=== PATIENT | female | born 1960 | race Caucasian/White ===

== ENCOUNTER → 2017-11-07 | Outpatient (CLI) | payer OTHER ==
[~2017-11-07] MED LIST: DYAZIDE; FLONASE; LEVOTHROID
== END ==
LOC: RAD 01:09
DX: Z12.31 Encounter for screening mammogram for malignant neoplasm of breast (principal)

== ENCOUNTER → 2018-02-19 | Outpatient (CLI) | payer OTHER | LOC: CAT 07:48 | DX: Z13.6 Encounter for screening for cardiovascular disorders (principal) ==

== ENCOUNTER → 2019-01-28 | Outpatient (CLI) | payer OTHER | LOC: RAD 15:16 | DX: Z12.31 Encounter for screening mammogram for malignant neoplasm of breast (principal) ==

== ENCOUNTER → 2019-03-24 | Outpatient (CLI) | payer OTHER ==
[~2019-03-24] VITALS: Ht 162.6 cm; Wt 88.9 kg
[~2019-03-24] MED LIST changes: +AGILEASE PO; +ASTEPRO205.5 MCG/ NASAL; +FISH OIL 1,001000 M2 PO; +MAXZIDE-25 MG1 EACH PO; +NASACORT10.8 ML NASAL; +SYNTHROID50 MCG PO; +VITAMIN D-32000 UNIT PO; +XYZAL5 MG PO
--- NOTE | 2019-03-25 14:43 | PATH ---
[facility] [place] [address] PATHOLOGY RPT PROCEDURE Name: ODALIS MCCORD Room #: REG [facility] M.R.#: [id number] ������������������ Admission: 03/24/19 ������������������ Date of : 62 Discharge: Report #: [id number] Path Case #: [id number] LCA Accession Number: [id number] . 01 Material submitted: . PART A: colon - BX OF ASCENDING COLON POLYP. Modifiers: ascending PART B: colon - RANDOM COLON BX TO R/O MICROSCOPIC COLITIS . 01 Clinical history: . Pre-OP DX: Hx of diarrhea, Hx of polyps Post-OP DX: Colon polyp, diverticulosis . 02 Diagnosis: A. Polyp, ascending colon polyp, endoscopic biopsy: - Tubular adenoma without high-grade dysplasia. - One fragment showing lymphoid tissue without dysplasia. . B. Large intestinal mucosa, random colon, rule out microscopic colitis, endoscopic biopsy: - Mild nonspecific reactive hyperplastic changes. - Negative for acute cryptitis. - Negative for microscopic colitis. - Negative for dysplasia or malignancy. (IUV:pit; 03/25/2019) QTP/03/25/2019 . 02 Electronically signed: . Almita White MD, Pathologist NPI- [id number] . 01 Gross description: . A. Received in formalin labeled "Odalis Mccord, BX of ascending colon polyp," are 2 segments of guerra soft tissue measuring 0.7 x 0.3 x 0.2cm in aggregate dimensions and ranging from 0.3 to 0.4 cm in maximum dimension. The specimen is submitted entirely in cassette A1. . B. Received in formalin labeled "Odalis Mccord, random colon BX, rule out microscopic colitis," are 4 segments of guerra soft tissue measuring 1.2 x 0.7 x 0.3 cm in aggregate dimensions and ranging from 0.3 to 0.5 cm in maximum dimension. The specimen is submitted entirely in cassette B1. (TSD; 03/24/2019) TOB/TOB . 02 Pathologist provided ICD-10: D12.2, Z87.19, Z86.010 . 02 [place] [address] PATHOLOGY RPT PROCEDURE Name: ODALIS MCCORD S Room #: REG CLI Tisha#: [id number] ������������������ Admission: 03/24/19 ������������������ Date of : 62 Discharge: Report #: [id number] Path Case #: [id number], [id number] Specimen Comment: A courtesy copy of this report has been sent to Specimen Comment: [phone], . Specimen Comment: Report sent to / DR TONEY Performed at: [address] [facility], [place] [id number] MD Zhao Rodriguez MD Phone: [phone] Performed at: [address] [id number] MD Almita White MD Phone: [phone]
--- NOTE | 2019-03-26 16:50 | P ---
[facility] [place] [address] [place] [address] PROCEDURE REPORT Name: ZENON AGUDELO Room #: REG [facility]#: [id number] Admission: 03/24/19 ������������������ Attend Phys: Atif Jimenez Discharge: ������������������ Date of : 62 Report #: [id number] THIS REPORT FOR: //name// CC: Atif Salgueroalistair Solorioon DATE OF SERVICE: 03/24/2019 PROCEDURE PERFORMED: Colonoscopy with biopsies. HISTORY OF PRESENT ILLNESS: The patient is a 58-year-old female with a history of colon polyps 5 years ago, possible family history of colon cancer in a grandparent. She does report intermittent diarrhea symptoms at times. DESCRIPTION OF PROCEDURE: The risks and benefits of the procedure were explained to the patient; those risks including, but not limited to bleeding, perforation and the risk of sedation. She understood these risks and gave informed consent. Sedation was given using propofol per Anesthesia. Next, a digital rectal exam was initially performed, which was normal. Next, using a standard Olympus colonoscope, the scope was placed in the patient's anus and advanced under direct vision to the cecum. The overall prep was good. The cecum and the ileocecal valve were normal in appearance. In the ascending colon, a 4-mm sessile polyp was noted. This was removed with cold forceps; otherwise normal. The transverse and descending colon were normal. Multiple diverticula were noted in the sigmoid colon. No evidence of inflammation; otherwise normal. The rectal mucosa was normal. On retroflexion, no abnormalities were noted. The scope was then withdrawn and the procedure terminated. The patient tolerated the procedure well. Random biopsies were obtained today. They were to rule out the possibility of microscopic colitis. IMPRESSION: 1. Small colonic polyp. 2. Sigmoid diverticulosis. 3. Otherwise, normal colonoscopy. RECOMMENDATIONS: 1. Await biopsy results. 2. Would recommend repeat colonoscopy in 5 years. [facility] [address] [place] [address] PROCEDURE REPORT Name: ZENON AGUDELO Room #: [facility]#: [id number] Admission: 03/24/19 ������������������ Attend Phys: Atif Jimenez Discharge: ������������������ Date of : 62 Report #: [id number] Thank you for allowing me to participate in her care. ��������������������������������������������� <ELECTRONICALLY SIGNED> ���������������������������������������� By: Atif Dominguez MD ��������������������������������������������� 03/26/19 1650 1051 0025 Atif Dominguez MD /nt
== END | disposition home or self-care (01) ==
LOC: GI 08:27
DX: D12.2 Benign neoplasm of ascending colon (principal); K57.30 Diverticulosis of large intestine without perforation or abscess without bleeding; E03.9 Hypothyroidism, unspecified; Z88.8 Allergy status to other drugs, medicaments and biological substances; Z98.890 Other specified postprocedural states; Z79.899 Other long term (current) drug therapy; Z86.010 Personal history of colon polyps
CPT/HCPCS: 62110; 62900

== ENCOUNTER → 2019-09-20 | Outpatient (CLI) | payer OTHER | LOC: MRI 07:08 | DX: S83.241A Other tear of medial meniscus, current injury, right knee, initial encounter (principal); W19.XXXA Unspecified fall, initial encounter; Y93.89 Activity, other specified; Y92.89 Other specified places as the place of occurrence of the external cause; Y99.8 Other external cause status ==

== ENCOUNTER → 2020-02-17 | Outpatient (CLI) | payer OTHER | LOC: RAD 11:09 | PROVIDERS: ATTEND Family Medicine | DX: Z12.31 Encounter for screening mammogram for malignant neoplasm of breast (principal); N64.89 Other specified disorders of breast ==

== ENCOUNTER 2020-06-17 06:33 | Emergency (ER) | payer OTHER ==
[~2020-06-17] VITALS: Ht 162.6 cm; Wt 83.9 kg
[2020-06-17] MEDS ORDERED: ZOFRAN ODT4 MG PO (07:37)
[2020-06-17] MEDS ORDERED: NORCO 5-325 TA1 EAC2 PO (07:37)
[2020-06-17] MEDS ORDERED: PROTONIX40 M2 PO (07:37)
[2020-06-17] MEDS ORDERED: CARAFATE 1 GM TA1 G1 PO (07:37)
[2020-06-17 07:44] VITALS: BP 151/72
== END 2020-06-17 07:50 | disposition home or self-care (01) ==
LOC: ER 06:33
DX: K21.9 Gastro-esophageal reflux disease without esophagitis (principal); R10.13 Epigastric pain; R10.33 Periumbilical pain; R11.2 Nausea with vomiting, unspecified; E03.9 Hypothyroidism, unspecified; Z90.89 Acquired absence of other organs; Z98.890 Other specified postprocedural states; Z90.711 Acquired absence of uterus with remaining cervical stump; Z79.899 Other long term (current) drug therapy; Z88.5 Allergy status to narcotic agent

== ENCOUNTER → 2020-06-26 | Outpatient (CLI) | payer OTHER ==
[~2020-06-26] MED LIST changes: +CARAFATE 1 GM TA1 G1 PO; +NORCO 5-325 TA1 EAC2 PO; +PROTONIX40 M2 PO; +ZOFRAN ODT4 MG PO
== END ==
LOC: LAB 14:58
PROVIDERS: ATTEND Nurse Practitioner
DX: K81.0 Acute cholecystitis (principal); K57.30 Diverticulosis of large intestine without perforation or abscess without bleeding; K82.8 Other specified diseases of gallbladder

== ENCOUNTER 2020-06-28 12:49 | Observation (INO) | payer OTHER ==
[~2020-06-28] VITALS: Ht 162.6 cm; Wt 83.9 kg
[~2020-06-28 12:49] MED LIST changes: -COLACE 100 MG100 MG PO; -HYDROCODON-ACE1 EAC7 PO; -MIRALAX17 GM PO
[2020-06-28 13:49] VITALS: BP 144/74
[2020-06-28] MEDS ORDERED: COLACE 100 MG100 MG PO (16:05)
[2020-06-28] MEDS ORDERED: HYDROCODON-ACE1 EAC7 PO (16:05)
[2020-06-28] MEDS ORDERED: MIRALAX17 GM PO (16:05)
[2020-06-28 16:37] VITALS: BP 144/74
[2020-06-28 20:39] VITALS: BP 129/72
--- NOTE | 2020-06-29 02:06 | NUR ---
PT 'S ADMISSION HX,EDUCATIONA AND ASSESSMENT COMPLETED.PT STATED THAT SHE HAD AN EPISODE OF NAUSEA ENROUTE TO THE FLOOR FROM PACU,NONE NOTED SO FAR SINCE PT WAS ADMITTED.PT C/O PAIN ON HER ABD,MANAGED WITH MED.PT DID ONE LAP AT [facility] SHE RETIRED FOR THE NIGHT.IVF INFUSING OREDERED.PT WITH FOUR LAP SITES COVERED WITH DERMABOND,CLEAN AND INTACT.PT SLEEPING ON HER BED AT THOIS TIME.FALL PRECAUTIONS IN PLACE,CALL LIGHT WITHIN REACH.
[2020-06-29 07:30] VITALS: BP 125/63
--- NOTE | 2020-06-29 09:02 | NUR ---
PT CARE ASSUMED AT 0700. A&Ox4. LAPSITES x4 DRY AND INTACT. PAIN MANAGED WELL WITH PAIN MEDICATION ON BOARD. TOLERATING DIET WELL. CLEARED BY DR. TONEY AND DR. WILLIS TO DISCHARGE. IV PATENT WITH NO REDNESS OR EDEMA, SALINE LOCKED. IV REMOVED. DISCHARGE INSTRUCTIONS GIVEN. NO FURTHER QUESTIONS.
--- NOTE | 2020-06-30 17:06 | PATH ---
[facility] [address] [place] [address] PATHOLOGY RPT PROCEDURE Name: ODALIS MCCORD Room #: 448-P [facility] Alexa Giles#: [id number] Admission: 06/28/20 Date of : 62 Discharge: 06/29/20 Report #: [id number] Path Case #: [id number] LCA Accession Number: [id number] . 01 Material submitted: . gallbladder - GALLBLADDER . 01 Clinical history: . CHOLELITHIASIS . 02 Diagnosis: Gallbladder, cholecystectomy: - Moderate chronic cholecystitis associated with ulceration as well as hemorrhage. - Cholelithiasis. - Incidental reactive lymph node. (IUV/db; 06/30/2020) LBQ 06/30/2020 1406 Local . 02 Electronically signed: . Almita White MD, Pathologist NPI- [id number] . 01 Gross description: . Received in formalin labeled "Odalis Mccord, gallbladder" is a previously opened cholecystectomy specimen measuring 8.3 x 4.0 x 2.1 cm. The serosa is pink-green and smooth with a full thickness defect in the hepatic bed measuring 2.0 x 1.1 cm. The specimen is opened to reveal guerra-green velvety mucosa without polyps or masses. The average wall thickness is 0.5 cm. Multiple yellow guerra bosselated calculi are present within the gallbladder and within the container, measuring in aggregate 5.5 x 2.9 x 0.4 cm and ranging from 0.3-0.6 cm in greatest dimension. Buffing Line Set Up Worker sections of the fundus and body and the cystic duct margin are submitted in A1-A2. ([facility]; 06/29/2020) [facility] 06/29/2020 1612 Local . 02 Pathologist provided ICD-10: K80.10, K82.8 . 02 CPT . 729379 Specimen Comment: A courtesy copy of this report has been sent to [phone] Specimen Comment: [phone] Specimen Comment: Report sent to / DR TONEY Performed at: 01 [place] [address] PATHOLOGY RPT PROCEDURE Name: ODALIS MCCORD Room #: 448-P [facility] Alexa Giles#: [id number] Admission: 06/28/20 Date of : 62 Discharge: 06/29/20 Report #: [id number] Path Case #: [id number] [address] [facility] [address], [place], [place] [id number] MD Arsh Schaeffer MD Phone: [phone] Performed at: [address] [id number] MD Almita White MD Phone: [phone]
== END 2020-06-29 09:38 | disposition home or self-care (01) ==
LOC: OR 12:49 → 4S 18:54 → OR 18:55 → 4S 18:56
PROVIDERS: ADMIT Surgery; ATTEND Surgery
DX: K80.10 Calculus of gallbladder with chronic cholecystitis without obstruction (principal); Z79.899 Other long term (current) drug therapy
CPT/HCPCS: 50010; 50101; 50411; 50555; 50558; 51297; 51489; 52265; 52266; 52287; 53307; 53310; 53312; 54022; 54118; 55245; 56462; 56525; 56526; 62110; 62900; 70005

== ENCOUNTER → 2020-06-28 | Outpatient (CLI) | payer OTHER ==
[~2020-06-28] MED LIST changes: +COLACE 100 MG100 MG PO; +HYDROCODON-ACE1 EAC7 PO; +MIRALAX17 GM PO
== END ==
LOC: LAB 07:23
PROVIDERS: ATTEND Surgery
DX: Z01.812 Encounter for preprocedural laboratory examination (principal); Z20.828 Contact with and (suspected) exposure to other viral communicable diseases

== ENCOUNTER 2020-07-03 14:31 | Inpatient (IN) | payer OTHER ==
[~2020-07-03] VITALS: Ht 162.6 cm; Wt 83.6 kg
[~2020-07-03 14:31] MED LIST changes: +COLACE 100 MG100 MG PO; +HYDROCODON-ACE1 EAC7 PO; +MIRALAX17 GM PO
[2020-07-03 14:36] VITALS: BP 136/56
[2020-07-03 16:14] LABS: ABSOLUTE NEUTROPHILS 5.2 thou/uL (1.4-8.2); BASOPHILS 0.6 % (0.0-2.0); EOSINOPHILS 3.7 % (0.0-3.0); HEMOGLOBIN 14.6 gm/dL (12.0-15.0); LYMPHOCYTES 15.1 % (24.0-44.0); MCH 32.5 pg (26.0-34.0); MCHC 34.7 g/dL (28.0-37.0); MCV 93.6 fL (80.0-100.0); MONOCYTES 5.5 % (1.0-8.0); PLATELET COUNT 295 thou/uL (150-400); POLYS 75.1 % (36.0-66.0); RBC 4.48 mil/uL (4.20-5.00); RDW 12.3 % (10.5-14.5); WBC 6.9 thou/uL (4.0-11.0)
--- NOTE | 2020-07-03 16:43 | EKG ---
[facility] [place] [address] [place] [address] ELECTROCARDIOGRAM REPORT Name: ZENON AGUDELO Room #: REG [facility].R.#: [id number] Admission: 07/03/20 Attend Phys: Discharge: Date of : 62 Report #: [id number] THIS REPORT FOR: cc: Lennox Grier MD, Neal A. 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
[2020-07-03 16:55] LABS: CALCIUM 9.6 mg/dL (8.5-10.1); CREATININE 0.9 mg/dL (0.6-1.0); POTASSIUM 4.1 mmol/L (3.5-5.1)
[2020-07-03 17:07] LABS: ALBUMIN 3.8 g/dL (3.4-5.0); TOTAL BILIRUBIN 1.4 mg/dL (0.2-1.0); TOTAL PROTEIN 7.4 g/dL (6.4-8.2)
[2020-07-03 20:56] VITALS: BP 153/63
[2020-07-03 21:06] VITALS: BP 136/55
[2020-07-03 21:30] VITALS: BP 142/64
--- NOTE | 2020-07-04 00:47 | NUR ---
PT ADMITTED TO 449 VIA CART FROM ER AT 2130. PT ALERT AND ORIENTED X 4. UP TO BR AD CARLOS WITHOUT DIFFICULTY. LAC IV INTACT AND PATENT. NS INFUSING AT 100 ML/HR. PT HAS RASH ON HER BACK AND HER FACE IS FLUSHED. C/O ITCHING. PT NPO. PT C/O ABDOMINAL PAIN. FENTANYL GIVEN ORDERED. BENADRYL ALSO GIVEN FOR ITCHING. PT HAS 5 LAP TELLO SITES WITH SURGICAL GLUE. SITES WITHOUT REDNESS OR DRAINAGE. PT ORIENTED TO ROOM AND USE OF CALL LIGHT. PT APPEARS TO BE SLEEPING ON HOURLY ROUNDS.
[2020-07-04 05:20] VITALS: BP 138/61
[2020-07-04 07:35] LABS: HEMATOCRIT 39.7 % (37.0-47.0); HEMOGLOBIN 13.3 gm/dL (12.0-15.0); MCH 31.8 pg (26.0-34.0); MCHC 33.5 g/dL (28.0-37.0); MCV 94.8 fL (80.0-100.0); RBC 4.18 mil/uL (4.20-5.00); RDW 12.5 % (10.5-14.5)
[2020-07-04 07:53] LABS: ALBUMIN 3.3 g/dL (3.4-5.0); CALCIUM 8.2 mg/dL (8.5-10.1); CREATININE 0.8 mg/dL (0.6-1.0); POTASSIUM 3.7 mmol/L (3.5-5.1); TOTAL BILIRUBIN 0.7 mg/dL (0.2-1.0); TOTAL PROTEIN 5.8 g/dL (6.4-8.2)
--- NOTE | 2020-07-04 13:41 | NUR ---
PT ADMITTED RELATED TO INTRA ABDOMINAL ABSCESS, GASTRIC PAIN. CM REVIEWED CHART AND SPOKE WITH CARE TEAM. CM CALLED AND SPOKE WITH PT AT BEDSIDE THIS PT APPEARED TO BE A&O X4. CM ROLE INTRODUCED. PT INDICATED SHE LIVES IN A HOUSE WITH HER SPOUSE WITH 3 STEPS TO ENTER AND 12 STEPS INSIDE. 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 PT INDICATED NO DME. PT INDICATED SHE PLANS TO RETURN HOME ONCE MEDICALLY STABLE. PT'S PCPC IS DR. KELLIE TONEY. CM TO FOLLOW INDICATED WITH DC PLANNING. PT HAD PIPPIDA SCAN THIS AM SURGERY CONSULTED.
[2020-07-04 18:43] VITALS: BP 134/65
[2020-07-04 19:42] VITALS: BP 143/75
--- NOTE | 2020-07-04 19:45 | NUR ---
Assumed pt care this am, VS stable, pain is managed with IV pain meds partial relief is noted. Received NPO, went for a pippida scan. Is up ad jaz and steady on her gait. Call appropriately, at the bedside. POC followed, pt is very anxious wanting to know what will happen next. Dient and medications are tolerated well. Endorsed to the night nurse.
--- NOTE | 2020-07-05 03:40 | NUR ---
assumed care approx 193 evening 07/04. pt alert and oriented x4, appropriate and cooperative. pt given pain meds as ordered. pt up to bathroom to void and have bm tonight. IVF infusing as ordered. pt appears to be sleeping soundly with rounding checks. call light in reach. will continue to monitor.
[2020-07-05 07:48] LABS: HEMATOCRIT 38.4 % (37.0-47.0); HEMOGLOBIN 12.8 gm/dL (12.0-15.0); MCH 31.8 pg (26.0-34.0); MCHC 33.3 g/dL (28.0-37.0); MCV 95.7 fL (80.0-100.0); RBC 4.02 mil/uL (4.20-5.00); RDW 12.5 % (10.5-14.5); WBC 7.7 thou/uL (4.0-11.0)
[2020-07-05 08:08] LABS: ALBUMIN 3.4 g/dL (3.4-5.0); CALCIUM 8.6 mg/dL (8.5-10.1); CREATININE 0.7 mg/dL (0.6-1.0); POTASSIUM 3.6 mmol/L (3.5-5.1); TOTAL BILIRUBIN 0.8 mg/dL (0.2-1.0); TOTAL PROTEIN 6.1 g/dL (6.4-8.2)
[2020-07-05 09:48] VITALS: BP 144/78
--- NOTE | 2020-07-05 13:51 | NUR ---
CARE TEAM INDICATED THAT PT IS TO HAVE AN MRCP THIS DAY AND MAY NEED AN ERCP. CM TO FOLLOW INDICATED WITH DC PLANNING.
[2020-07-05 14:29] VITALS: BP 136/65
[2020-07-05 19:15] VITALS: BP 145/81
--- NOTE | 2020-07-06 03:16 | NUR ---
patient aox4 makes needs known.pain controlled this shift. patient ambulates in the room and the hallway with steady gaits.patient has been npo since midnight. patient is up at jaz. patient in bed asleep at this time breathing regular and unlaboured.
[2020-07-06 05:37] LABS: HEMATOCRIT 34.8 % (37.0-47.0); HEMOGLOBIN 11.6 gm/dL (12.0-15.0); MCH 31.9 pg (26.0-34.0); MCHC 33.2 g/dL (28.0-37.0); RBC 3.63 mil/uL (4.20-5.00); RDW 12.6 % (10.5-14.5)
[2020-07-06 06:01] LABS: ALBUMIN 3.1 g/dL (3.4-5.0); DIRECT BILIRUBIN 0.2 mg/dL (<0.1-0.2); TOTAL BILIRUBIN 0.5 mg/dL (0.2-1.0); TOTAL PROTEIN 5.9 g/dL (6.4-8.2)
[2020-07-06 07:11] VITALS: BP 109/40
--- NOTE | 2020-07-06 13:56 | NUR ---
Pt had ERCP this day. Care team indicated pt's diet is to be advanced and that LFT's are to be repeated in the am. It is anticipated that pt will likely be medically stable to dc home once medically stable. Cm to follow as indicated with dc planning.
[2020-07-06 14:44] VITALS: BP 113/83
--- NOTE | 2020-07-06 19:48 | NUR ---
Assumed pt care this am, this am received NPO. Pain was managed with medications. Went down for ERCP, VS stable. Pt complained of wheezing, phlegm that was pink and blood tinged. Informed MD, meds ordered. No pain was noted post op, POC followed, took a full bath pre op. no signs of distress noted. Endorsed to the night nurse.
[2020-07-06 20:00] VITALS: BP 158/92
[2020-07-07 06:56] VITALS: BP 123/59
[2020-07-07 08:03] LABS: ALBUMIN 3.1 g/dL (3.4-5.0); CREATININE 0.8 mg/dL (0.6-1.0); POTASSIUM 3.5 mmol/L (3.5-5.1); TOTAL BILIRUBIN 0.4 mg/dL (0.2-1.0); TOTAL PROTEIN 6.2 g/dL (6.4-8.2)
[2020-07-07 08:14] LABS: CALCIUM 8.6 mg/dL (8.5-10.1)
[2020-07-07 10:47] VITALS: BP 123/59
--- NOTE | 2020-07-07 11:04 | NUR ---
CARE TEAM INDICATED THAT PT IS MEDICALLY STABLE TO DC HOME THIS DAY. IT APPEARES THAT PT IS TO DC HOME TO SELF CARE. PT'S SPOUSE IS TO PROVIDE TRANSPORT HOME THIS DAY. NO OTHER CM INTERVENTION INDICATED. CASE CLOSED.
--- NOTE | 2020-07-07 11:46 | NUR ---
PT A&OX4, VSS, PAIN IN ABDOMEN WHEN MOVING. PAIN MEDICATION GIVEN. ABDOMEN ROUND AND SOFT. 5 LAP SITES WITH DERMABOND C/D/I. PATIENT STEADY ON FEET AD CARLOS TO BATHROOM. PATIENT TOLERATED BREAKFAST. AT BEDSIDE. PATIENT DISCHARGE HOME WITH NO NEEDS. PATIENT COMMUNICATED UNDERSTANDING OF PAPERWORK. NO SIGNS OF DISTRESS. ALL BELONGINGS WITH PATIENT AND IV REMOVED BEFORE DISCHARGE.
--- NOTE | 2020-07-07 13:16 | P ---
[facility] [place] [place] [address] PROCEDURE REPORT Name: ZENON AGUDELO Room #: 449-I [facility] IN ..#: [id number] Admission: 07/03/20 Attend Phys: Darin Arce MD Discharge: 07/07/20 Date of : 62 Report #: [id number] THIS REPORT FOR: cc: Lennox Grier MD, Neal A. MD McElhinney, Christian C. MD ~ CC: Lennox Arce MD DATE OF SERVICE: 07/06/2020 PROCEDURE PERFORMED: Upper endoscopy with biopsies and ERCP with sphincterotomy and stone removal. HISTORY OF PRESENT ILLNESS: The patient is a 59-year-old female with abdominal pain, history of cholecystitis, who underwent a laparoscopic cholecystectomy on 06/28/[address] Lennox Grier. He found severe gangrenous cholecystitis at that time. Multiple cholelithiasis was noted. Postoperatively, the patient continued to have pain and elevation in her liver function test, specifically AST, ALT and alkaline phosphatase. Her bilirubin has remained normal. Most recent labs show total bilirubin 0.5, AST 103, ALT 547, alkaline phosphatase 459, lipase is 69 yesterday. White count is 7.0. The patient remains afebrile. She underwent a PET scan on 07/04, which showed no biliary activity despite [address] scan of the abdomen and pelvis was then performed, showing recent cholecystectomy changes, slightly thickened, fluid collection near the gallbladder fossa without discrete measurable drainable fluid. An MRI with MRCP was then performed yesterday, which showed an eccentric filling defect along the distal common hepatic duct, just above the cystic duct, concerning for nonocclusive choledocholithiasis. Plan is for ERCP. DESCRIPTION OF PROCEDURE: The risks and benefits of the procedure were explained to the patient, those risks including but not limited to bleeding, perforation, the risk of sedation as well as the potential for post-ERCP pancreatitis. She understood these risks and gave informed consent. The procedure was performed in the operating room under general anesthetic. 2 g of Ancef were given prior to the procedure. A 50 mg indomethacin rectal suppository was also given prior to the procedure. Next, using a standard Olympus upper endoscope, the scope was placed in the patient's mouth and advanced under direct vision through the esophagus, stomach and into the second portion of the duodenum. The esophagus was normal throughout. The GE junction was normal. Multiple gastric polyps were noted. Several biopsies were obtained. A mild gastritis also seen. Biopsies obtained to rule out H. pylori. The pylorus was normal and patent. The duodenal bulb, first and second portion were normal. At this point, the scope was then withdrawn and a standard Olympus [facility] [address] [place] [address] PROCEDURE REPORT Name: ZENON AGUDELO Room #: 449-I [facility] IN [facility].#: [id number] Admission: 07/03/20 Attend Phys: Darin Arce MD Discharge: 07/07/20 Date of : 62 Report #: [id number] ERCP scope was then placed in the patient's mouth and advanced under direct vision into the second portion of the duodenum. The major papilla was identified and normal in appearance with good bile drainage. Next, using a Rolf-Cook 0.02 dome tipped sphincterotome catheter, the common bile duct was cannulated without difficulty and a cholangiogram was obtained. No obvious filling defect was seen. No evidence of bile leak. There was no significant dilation of the bile duct or intrahepatic ducts, which filled normally. At this point, a guidewire was advanced up into the intrahepatic ducts and a sphincterotomy was performed without difficulty. Next, a sphincterotome was removed and a balloon catheter was advanced over the wire. A balloon sweep was performed, in which a single medium size stone was removed. Next, I then performed several further balloon sweeps, no further stones or debris was removed. At this point, a balloon occlusion cholangiogram was performed. No filling defects were seen at this point. At this point, the catheter and wire were removed. The scope was then withdrawn and the procedure terminated. The patient tolerated the procedure well. IMPRESSION: 1. Multiple gastric polyps, biopsies obtained. 2. Common bile duct stone, status post sphincterotomy with stone removal. 3. No evidence of bile leak. 4. Normal appearing intrahepatic ducts. RECOMMENDATIONS: 1. Await biopsy results. 2. Continue PPI therapy. 3. Observe the patient post-stone removal. We will continue to follow her liver function tests. Thank you for allowing me to participate in her care. <ELECTRONICALLY SIGNED> By: Atif Dominguez MD 07/07/20 1316 1340 0744 Atif Dominguez MD /nt
--- NOTE | 2020-07-10 17:06 | PATH ---
[facility] [place] [address] PATHOLOGY RPT PROCEDURE Name: ODALIS MCCORD Room #: 449-I [facility] M.R.#: [id number] Admission: 07/03/20 Date of : 62 Discharge: 07/07/20 Report #: [id number] Path Case #: [id number] LCA Accession Number: [id number] . 01 Material submitted: . PART A: stomach - GASTRIC POLYPS PART B: stomach - GASTRITIS BIOPSY R/O H. PYLORI . 01 Clinician provided ICD-10: K75.89 G89.18 . 01 Clinical history: . INTRA-ABD ABSCESS, TRANSAMINITIS . 02 Diagnosis: A. Polyps, gastric polyps, endoscopic biopsy: - Fundic gland polyps. - One fragment showing active inflammation along with reactive atypia. - No definitive dysplasia identified. . B. Gastric mucosa, gastritis R/O H. pylori, endoscopic biopsy: - Mild chronic gastritis, - Negative for intestinal metaplasia or atrophy. - Negative for Helicobacter pylori (properly controlled immunohistochemical stain performed). (IUV:eben; 07/10/2020) QMS 07/10/2020 1248 Local . 02 Electronically signed: . Almita White MD, Pathologist NPI- [id number] . 01 Gross description: . A. The specimen is received in formalin, labeled "Odalis Mccord, gastric polyps". Received are four segments of pale guerra soft tissue ranging in size from 0.2 to 0.5 cm in maximum dimensions. The specimen is submitted entirely in cassette A1. . B. The specimen is received in formalin, labeled "Odalis Mccord, gastritis biopsy, R/O H. pylori". Received are four segments of pale guerra soft tissue ranging in size from 0.3 to 0.8 cm in maximum dimensions. The specimen is submitted entirely in cassette B1. ([facility]; 07/07/2020) QA/LOCATED WITHIN [facility] 07/07/2020 1507 Local . 02 Pathologist provided ICD-10: [address] [address] PATHOLOGY RPT PROCEDURE Name: ODALIS MCCORD Room #: 449-I [facility] IN M.R.#: [id number] Admission: 07/03/20 Date of : 62 Discharge: 07/07/20 Report #: [id number] Path Case #: [id number] K31.7, K29.70, K29.50 . 02 CPT . 656198, [id number], [id number] Specimen Comment: A courtesy copy of this report has been sent to [phone] Specimen Comment: [phone], Specimen Comment: Report sent to ,DR WILLIS / DR TONEY Performed at: [address] [facility] [address], [place], [place] [id number] MD Arsh Schaeffer MD Phone: [phone] Performed at: [address] [facility] [address] [id number] MD Almita White MD Phone: [phone]
== END 2020-07-07 11:30 | disposition home or self-care (01) | DRG 444 ==
LOC: ER 14:31 → EROBS 19:44 → 4W 19:44 → EROBS 19:44 → 4W 21:06
PROVIDERS: Emergency Medicine; Nurse Practitioner; Surgery; ADMIT Family Medicine; ATTEND Family Medicine
PROC: 0DB68ZX Excision of Stomach, Via Natural or Artificial Opening Endoscopic, Diagnostic (ICD-10-PCS; principal; 2020-07-06)
PROC: BF101ZZ Fluoroscopy of Bile Ducts using Low Osmolar Contrast (ICD-10-PCS; principal; 2020-07-06)
PROC: 0FC98ZZ Extirpation of Matter from Common Bile Duct, Via Natural or Artificial Opening Endoscopic (ICD-10-PCS; principal; 2020-07-06)
DX: K80.40 Calculus of bile duct with cholecystitis, unspecified, without obstruction (principal); K65.1 Peritoneal abscess; E44.1 Mild protein-calorie malnutrition; K75.89 Other specified inflammatory liver diseases; G89.18 Other acute postprocedural pain; E03.9 Hypothyroidism, unspecified; K75.9 Inflammatory liver disease, unspecified; I10 Essential (primary) hypertension; R74.01 Elevation of levels of liver transaminase levels; K21.9 Gastro-esophageal reflux disease without esophagitis; K31.7 Polyp of stomach and duodenum; Z20.828 Contact with and (suspected) exposure to other viral communicable diseases; Z98.891 History of uterine scar from previous surgery; Z90.710 Acquired absence of both cervix and uterus; Z79.899 Other long term (current) drug therapy; Z88.5 Allergy status to narcotic agent; Z90.49 Acquired absence of other specified parts of digestive tract
CPT/HCPCS: 10040; 62110; 62900; 70005